=== PATIENT | male | born 1985 | race African-American/Black ===

== ENCOUNTER 2019-11-08 11:33 | Outpatient (CLI) | payer OTHER ==
[2019-11-08] MEDS ORDERED: RT-ALBUTEROL SULF 2.5 MG/3 ML PRE-MIX VIAL ONE (11:58)
[2019-11-08] MEDS ORDERED: RT-ALBUTEROL SULF 2.5 MG/3 ML PRE-MIX VIAL INH ONE (12:00)
[2019-11-08] MEDS ORDERED: CATHETER FLUSH 10 ML SYR IV PRN (12:30)
[2019-11-08] MEDS ORDERED: IOHEXOL 350 MG/ML 100 ML (OMNIPAQUE 350) VIAL IV ONE (12:30)
[2019-11-08] MEDS ORDERED: HOLD METFORMIN - RECEIVED CONTRAST 20 ML VIAL IV SCH (12:30)
[2019-11-08] MEDS ORDERED: NS 100 ML (IVPB) BAG IV ONE (12:30)
--- NOTE | 2019-11-08 13:10 | Diagnostic Imaging Report ---
PROCEDURE: CT chest with contrast only. TECHNIQUE: Multiple contiguous axial images were obtained through the chest after administration of intravenous contrast. Auto Exposure Controls were utilized during the CT exam to meet ALARA standards for radiation dose reduction. DATE: November 08, 2019. COMPARISON: None. INDICATION: 33-year-old male, dyspnea. Cough. FINDINGS: There is mild dependent atelectasis. There is no additional focal airspace consolidation. There is no pulmonary nodule. There is no lung mass. There is no pneumothorax. There is no pleural effusion. The central airways are patent. The heart is not enlarged. There is no identified pulmonary embolus. There is no pericardial effusion. There is mild prominence of thymic tissue. There is no abnormally enlarged mediastinal, hilar, or axillary lymph node meeting CT size criteria for adenopathy. The imaged portions of the upper abdomen are unremarkable in appearance. There is no identified acute bony abnormality. IMPRESSION: No acute cardiopulmonary abnormality. Dictated by: Dictated on workstation # [id number]
== END 2019-11-08 13:15 | disposition home or self-care (01) ==
LOC: RT 11:33
PROVIDERS: ATTEND Internal Medicine Critical Care Medicine
DX: J45.909 Unspecified asthma, uncomplicated (principal); G47.50 Parasomnia, unspecified; G47.10 Hypersomnia, unspecified
CPT/HCPCS: 71260; 94060; 94726; 94729